=== PATIENT | male | born 1950 | race Caucasian/White ===

== ENCOUNTER 2023-11-11 20:07 | Emergency (ER) | payer OTHER, SELFPAY ==
[2023-11-11 20:09] VITALS: BP 165/117; BMI 23.1
[2023-11-11 22:34] LABS: Urine Albumin Negative (Neg - Trace); Urine Bilirubin Negative (Negative); Urine Character Clear (Clear); Urine Color Straw; Urine Glucose Negative (Negative); Urine Ketone Trace (Negative); Urine Leukocyte Trace (Negative); Urine Nitrite Negative (Negative); Urine Occult Blood Negative (Negative); Urine Urobilinogen Negative (Neg - 1+)
[2023-11-11 22:39] LABS: Urine Squamous Cell 0-2 /LPF (Few)
[2023-11-11 22:40] LABS: Urine Bacteria Few (Negative); Urine Red Blood Cell 0-2 /HPF (0-2); Urine White Cell 0-2 /HPF (0-5)
[2023-11-11 23:08] VITALS: BP 164/97
--- NOTE | 2023-11-11 23:30 | ED.GENMED ---
History of Present Illness
General
Chief Complaint: Male Genito-Urinary Symptoms
Source: patient
Exam Limitations: none
Time Seen by Provider: 11/11/23 20:37
Nursing documentation reviewed up to this point in time: agreed with
History of Present Illness
History of Present Illness:
Pleasant 73-year-old male who presents with left testicular swelling that is been present for 4 to 6 weeks. Today he reports it is worse. Denies fever, chills, nausea or vomiting. Reports no difficulty toileting.
Past History
Past History
ED Past Medical History: CAD, HTN and Hypercholesterolemia
ED Past Surgical History: None
Social History
Tobacco: Non-smoker
Alcohol: None
Family History
Family History: Early CAD; Negative Diabetes, Hypertension, Asthma or Cancer
Review of Systems
Review of Systems
Allergies reviewed?: Yes
All Other Systems: ROS reviewed and negative except as documented in HPI and ROS
Constitutional: Reports no symptoms
EENT: Reports no symptoms
Respiratory: Reports no symptoms
Cardiac: Reports no symptoms
ABD/GI: Reports no symptoms
: Reports no symptoms; Denies frequency or difficulty voiding
Musculoskeletal: Reports no symptoms
Skin: Reports no symptoms
Neurological: Reports no symptoms
Endocrine: Reports no symptoms
Hematologic/Lymphatic: Reports no symptoms
Psychiatric: Reports no symptoms
Phy Exam
General Physical Exam
General Presentation: well appearing and no apparent distress
General Skin: warm and dry
General Habitus: normal
General Mental: alert
General Hydration: appears well hydrated
ENT Exam
ENT Exam: EOMI, pharynx normal, neck supple and normocephalic
Eye Exam
Eye Exam: PERRL, cornea clear and conjunctiva normal
Cardiovascular Exam
Cardiovascular Exam: regular rate/rhythm, no edema, no murmur and normal peripheral pulses
Pulmonary Exam
Pulmonary Exam: lungs clear, no respiratory distress, no rales, no crackles, no rhonchi, no stridor, no wheezing and no cough
Gastrointestinal Exam
Gastrointestinal Exam: normal bowel sounds, non tender, soft, no organomegaly, no pulsatile mass and non distended
Genitourinary Exam Male
Exam Male: no evidence of trauma
Testicular Exam: Enlarged testicle: Left
Epididymis Exam: normal
Neurological Exam
Neurological Exam: alert, oriented x3, no motor deficits and speech normal
Musculoskeletal Exam
Musculoskeletal Exam: full ROM and no edema
Skin Exam
Skin Exam: normal color, warm/dry, no rash and no petechia
Psychiatric Exam
Psychiatric Exam: normal mood/affect
Course
Orders/Labs/Results
Orders:
Orders
11/11/23 20:37
Scrotum US [US Scrotum] Urgent
Comment:
Reason For Exam: testicular swelling
11/11/23 22:27
Urinalysis Reflex To Culture Urgent
Date Specimen was Collected: 11/11/23
Time Specimen was Collected: 22:22
Urine Microscopic Reflex Cult Urgent
Abnormal Lab Results
11/11/23
22:27
Urine Ketones Trace A
(Negative)
Leukocyte Esterase Rfl Trace A
(Negative)
Urine Bacteria (Reflex) Few A
(Negative)
Vital Signs
Initial and Last Documented VS:
Initial Vital Signs
Temp Pulse Resp BP Pulse Ox
97.8 F 75 16 165/117 99
11/11/23 20:09 11/11/23 20:09 11/11/23 20:09 11/11/23 20:09 11/11/23 20:09
Last Documented Vital Signs
Temp Pulse Resp BP Pulse Ox
97.8 F 75 16 164/97 96
11/11/23 20:09 11/11/23 20:09 11/11/23 20:09 11/11/23 23:08 11/11/23 23:45
*Critical Care Note
Total Time (30-74mins, 75-104mins- exclusive of procedures): Not Applicable
Update Note
Update Note:
IMPRESSION:
Normal echotexture and flow to the bilateral testicles. No evidence of testicular torsion.
Small bilateral hydroceles.
Probable right appendix testes seen measuring 0.2 x 0.5 x 0.4 cm.
Right epididymal head is unremarkable and measures 0.7 x 0.9 x 0.8 cm.
Left epididymal head is not well visualized.
There is echogenicity possible fat in the left inguinal canal.
In the area of palpable lump in the left lower quadrant in the suprapubic region, there are multiple unremarkable appearing bowel loops.
There may be a left inguinal hernia containing fat and possibly bowel.
ED Attending Note
-
Portions of this chart may have been created with voice recognition software.� Occasional wrong word or��sound alike� substitutions may have occurred due to the inherent limitations of voice recognition software.
Discharge Plan
Departure
Patient Disposition: Home (Routine Discharge)
Date of Disposition: 11/11/23
Time of Disposition: 23:35
Patient with high blood pressure during this ER visit?: Yes
Discharge Problem:
Hernia, Hydrocele
Instructions: Hydrocele, Groin Hernia (DC), BLOOD PRESSURE
Prescriptions:
No Action
ASPIRIN
81 mg PO DAILY
LISINOPRIL
PO BID
Simvastatin
30 mg PO DAILY
Referrals:
Surya Cook MD [Active] -
Gustabo Higginbotham MD [Family Provider] -
Sandeep Garcia MD [Active] - Call in 1-3 days for appt
Activity Restrictions/Additional Instructions:
It was a pleasure meeting you and taking part in your care. We hope for your continued healing and wellness.
Please read discharge instructions in their entirety. However, they are for general education and may not describe your exact diagnosis at discharge. Information on your ER visit and medical conditions were discussed with you along with appropriate
follow up information...
If indicated, please take your medications as instructed and indicated on discharge paperwork.
Please schedule a follow up appointment as directed. Call to schedule an appointment
Please return to the emergency department with ANY change in, persisting, or worsening of symptoms. If any of your symptoms do not improve, or persist, or become more severe within 6-12 hours, please return to the emergency department for further
care.
Please return to the emergency department if you develop a headache, neck pain/stiffness, fever greater than 100.4F, chest pain, shortness of breath, persistent nausea, vomiting, slurred speech, difficulty walking, numbness/tingling, weakness, signs
of infection or any other symptoms that are worrisome to you.
If you have any questions or concerns please do not hesitate to call the Hospital at or E-mail me directly at [email or web address]
Interventions
Interventions:
*Risk Screen - Suicide Last Done: 11/11/23 20:09
*General Assessment Last Done: 11/11/23 23:03
*Neglect/Abuse Screening Last Done: 11/11/23 20:09
ED- Fall Risk Assessment Last Done: 11/11/23 20:09
*ED COVID-19 Vaccine History Last Done: 11/11/23 23:03
*Nursing Disposition Last Done: 11/12/23 00:09
ED-Male Genitourinary Assessment Last Done: 11/11/23 23:03
Discharge Date and Time
Discharge Date/Time: 11/12/23 00:09
Print Language: AZERI
== END 2023-11-12 00:09 | disposition home or self-care (01) ==
LOC: EMR 20:07
PROVIDERS: EMERGENCY PHYSICIAN Student in an Organized Health Care Education/Training Program; FAMILY PHYSICIAN Family Medicine
DX: K40.90 Unilateral inguinal hernia, without obstruction or gangrene, not specified as recurrent (principal); N43.3 Hydrocele, unspecified
CPT/HCPCS: 99284; 76870; 81003; 81015; 93976

== ENCOUNTER 2023-12-08 06:13 | Day surgery (SDC) | payer OTHER, SELFPAY ==
[2023-12-08] VITALS (8 sets, daily range): BP systolic 133–146; BP diastolic 81–98; BMI 22.9
[2023-12-08] MEDS: NORMOSOL-R 1000 IV (11:55)
[2023-12-08] MEDS: TYLENOL 1000 MG PO (11:55)
== END 2023-12-08 17:28 | disposition home or self-care (01) ==
LOC: SDS 06:13
PROVIDERS: ATTENDING PHYSICIAN Surgery
DX: K40.30 Unilateral inguinal hernia, with obstruction, without gangrene, not specified as recurrent (principal)
CPT/HCPCS: 49505; 55520; 93005; C1781